=== PATIENT | female | born 2000 | race Hispanic/Latino ===

== ENCOUNTER 2023-02-20 05:00 | Inpatient (IN) | payer OTHER ==
[2023-02-20 06:35] VITALS: BMI 39.0
[2023-02-20] MEDS ORDERED: Methylergonovine 0.2 MG/ML VIAL IM PRN (06:36)
[2023-02-20] MEDS ORDERED: Ondansetron PF 4 MG/2 ML Vial IVP PRN ×2 (06:36→15:02)
[2023-02-20] MEDS ORDERED: Carboprost 250 MCG/ML AMP IM PRN (06:36)
[2023-02-20] MEDS ORDERED: Docusate 100 MG CAP PO PRN (06:36)
[2023-02-20] MEDS ORDERED: Promethazine HCl 25 MG/ML VIAL IM PRN ×2 (06:36→15:02)
[2023-02-20] MEDS ORDERED: Misoprostol 200 MCG TAB PR PRN (06:36)
[2023-02-20] MEDS ORDERED: hydrALAZINE 20 MG/ML VIAL SLOW IVP PRN (06:36)
[2023-02-20] MEDS ORDERED: fentaNYL 50 mcg/mL 1 mL Vial SLOW IVP PRN (06:36)
[2023-02-20] MEDS ORDERED: Ibuprofen 800 MG TAB PO PRN (06:36)
[2023-02-20] MEDS ORDERED: Lidocaine 1% (PF) 30 ML VIAL SC PRN (06:36)
[2023-02-20] MEDS ORDERED: Tranexamic Acid 1,000 MG/10 ML VIAL IVP PRN (06:36)
[2023-02-20] MEDS ORDERED: Lactated Ringer's 1,000 ML IV SCH (06:45)
[2023-02-20] MEDS ORDERED: Oxytocin 30 units/NS 500 ML 500 ML IV SCH ×3 (06:45)
[2023-02-20] MEDS ORDERED: Oxytocin 30 units/NS 500 ML 500 ML ONE (07:09)
[2023-02-20 07:10] LABS: Hemoglobin 14.5 g/dL (12.0-15.5); Mean Corpuscular HGB CONC 36.3 g/dL (32.0-36.0); Mean Corpuscular Volume 88.3 fl (81.6-98.3); Mean Platelet Volume 10.9 fl (7.4-10.4); Platelet Count 283 10x3/uL (150-450); RBC Distribution Width 13.2 % (11.5-14.5); Red Blood Cell (RBC) Count 4.53 10x6/uL (3.90-5.03); White Blood Cell (WBC) Count 9.9 10x3/uL (3.5-10.5)
[2023-02-20 07:42] LABS: Hep B Surf Ag - L&D Non-Reactive S/CO (NonReactive)
[2023-02-20 07:43] LABS: Syphilis Antibody Nonreactive (Nonreactive); Syphilis Antibody Index 0.03 S/CO (<1.00 Non-Reactive)
[2023-02-20] MEDS ORDERED: Bupivacaine PF 0.5% 30 ML VIAL ONE (08:00)
[2023-02-20] MEDS ORDERED: Bupivacaine 0.25% HCL 30 ML VIAL ONE (08:00)
[2023-02-20] MEDS ORDERED: fentaNYL/Ropivacaine Epidural 100 ML ONE (14:27)
[2023-02-20] MEDS ORDERED: Naloxone HCl 0.4 mg/ml Vial IVP PRN ×2 (15:02)
[2023-02-20] MEDS ORDERED: Lactated Ringer's 500 ML IV PRN (15:02)
[2023-02-20] MEDS ORDERED: ePHEDrine Sulfate 50 MG/10 ML VIAL SLOW IVP PRN (15:02)
[2023-02-20] MEDS ORDERED: Moisturizing Cream (Eucerin) 113 GM JAR TOP PRN (15:02)
[2023-02-20] MEDS ORDERED: Acetaminophen 325 MG TAB PO PRN (15:02)
[2023-02-20] MEDS ORDERED: diphenhydrAMINE 50 MG/ML VIAL IVP PRN (15:02)
[2023-02-20] MEDS ORDERED: fentaNYL 2 mcg/Ropivacaine 0.2% Epidural 100 ML CADD EPIDURAL SCH (15:15)
[2023-02-20] MEDS ORDERED: Communication Order-Pharmacy FS SCH (15:15)
[2023-02-21] MEDS ORDERED: diphenhydrAMINE 50 MG/ML VIAL IVP SCH (00:15)
[2023-02-21] MEDS ORDERED: CEFAZOLIN 2 GM VIAL ONE (00:55)
[2023-02-21] MEDS ORDERED: Azithromycin 500 MG VIAL ONE (00:55)
[2023-02-21] MEDS ORDERED: Ampicillin 125 MG/5 ML VIAL SLOW IVP SCH ×2 (03:00→06:00)
[2023-02-21] MEDS ORDERED: Ampicillin 2 GM VIAL ONE (03:04)
[2023-02-21] MEDS ORDERED: Ampicillin 2 GM in Sodium Chloride 0.9% 100 ML IVPB SCH ×3 (03:30→09:45)
[2023-02-21] MEDS ORDERED: Gentamicin 320 MG, Admixture Fee 1 EACH in Sodium Chloride 0.9% 100 ML IVPB SCH (04:00)
[2023-02-21] MEDS ORDERED: fentaNYL 50 mcg/mL 1 mL Vial ONE (04:18)
[2023-02-21] MEDS ORDERED: Piperacillin/Tazobactam 3.375 GM in Sodium Chloride 0.9% 100 ML IVPB SCH (06:00)
[2023-02-21] MEDS ORDERED: Ondansetron PF 4 MG/2 ML Vial IVP PRN (13:17)
[2023-02-21] MEDS ORDERED: Methylergonovine 0.2 MG/ML VIAL IM PRN (13:17)
[2023-02-21] MEDS ORDERED: Benzocaine-Menthol 82.5 ML CAN TOP PRN (13:17)
[2023-02-21] MEDS ORDERED: hydrALAZINE 20 MG/ML VIAL SLOW IVP PRN (13:17)
[2023-02-21] MEDS ORDERED: Oxytocin 30 units/NS 500 ML 500 ML IV SCH (13:17)
[2023-02-21] MEDS ORDERED: Bisacodyl 10 MG SUPP PR PRN (13:17)
[2023-02-21] MEDS ORDERED: Boostrix 0.5 ML (Tdap) VIAL (>/=7 yrs of age) IM ONE (13:17)
[2023-02-21] MEDS ORDERED: Misoprostol 200 MCG TAB VAG PRN (13:17)
[2023-02-21] MEDS ORDERED: diphenhydrAMINE 25 MG CAP PO PRN (13:17)
[2023-02-21] MEDS ORDERED: Milk Of Magnesia 30 ML UDCUP PO PRN (13:17)
[2023-02-21] MEDS ORDERED: Lanolin Ointment 7 GM TUBE TOP PRN (13:17)
[2023-02-21] MEDS ORDERED: Prenatal Vitamin 1 TAB PO SCH (13:30)
[2023-02-21] MEDS ORDERED: Docusate 100 MG CAP PO SCH (13:30)
[2023-02-21] MEDS ORDERED: Ferrous Sulfate 325 MG TAB PO SCH (13:30)
[2023-02-21 13:48] LABS: Hematocrit 31.8 % (34.9-44.5); Hemoglobin 11.1 g/dL (12.0-15.5); Mean Corpuscular HGB CONC 34.9 g/dL (32.0-36.0); Mean Corpuscular Hemoglobin 31.4 pg (27.0-33.0); Mean Corpuscular Volume 90.1 fl (81.6-98.3); Mean Platelet Volume 10.6 fl (7.4-10.4); Platelet Count 191 10x3/uL (150-450); RBC Distribution Width 13.4 % (11.5-14.5); Red Blood Cell (RBC) Count 3.53 10x6/uL (3.90-5.03); White Blood Cell (WBC) Count 16.2 10x3/uL (3.5-10.5)
[2023-02-21] MEDS: Ibuprofen 800 MG TAB PO SCH ×2 (14:52→22:09)
[2023-02-21] MEDS: Acetaminophen 500 MG TAB PO SCH ×2 (14:53→22:09)
[2023-02-21 16:24] LABS: D-Dimer Test 3.54 mg/L FEU (0.19-0.50); PTT 31.9 sec (22.0-33.0); Prothrombin Time 10.3 sec (9.5-12.1)
[2023-02-21] MEDS: Ferrous Sulfate 325 MG TAB PO SCH (19:26)
[2023-02-21] MEDS: Docusate 100 MG CAP PO SCH (22:08)
[2023-02-22] MEDS: Acetaminophen 500 MG TAB PO SCH ×3 (06:11→22:35)
[2023-02-22] MEDS: Ibuprofen 800 MG TAB PO SCH ×3 (06:11→22:34)
[2023-02-22] MEDS: Ferrous Sulfate 325 MG TAB PO SCH (08:05)
[2023-02-22] MEDS: Docusate 100 MG CAP PO SCH ×2 (08:06→22:34)
[2023-02-22] MEDS: Prenatal Vitamin 1 TAB PO SCH (08:06)
[2023-02-23] MEDS: Ferrous Sulfate 325 MG TAB PO SCH ×3 (06:26→18:20)
[2023-02-23] MEDS: Acetaminophen 500 MG TAB PO SCH ×2 (06:30→13:25)
[2023-02-23] MEDS: Ibuprofen 800 MG TAB PO SCH ×2 (06:31→13:26)
[2023-02-23] MEDS: Docusate 100 MG CAP PO SCH (08:32)
[2023-02-23] MEDS: Prenatal Vitamin 1 TAB PO SCH (08:32)
[2023-02-23 10:10] LABS: #Eosinphils 0.3 10x3/uL (0.0-0.5); #Monocytes 0.5 10x3/uL (0.0-1.1); #Neutrophils 4.7 10x3/uL (1.5-8.4); %Basophils 0.4 % (0.0-2.0); %Eosinophils 3.4 % (0.0-6.0); %Lymphocytes 33.4 % (18.0-47.0); %Monocytes 6.1 % (0.0-10.0); %Neutrophils 56.3 % (40.0-75.0); Hematocrit 28.9 % (34.9-44.5); Hemoglobin 10.1 g/dL (12.0-15.5); Mean Corpuscular HGB CONC 34.9 g/dL (32.0-36.0); Mean Corpuscular Hemoglobin 31.9 pg (27.0-33.0); Mean Corpuscular Volume 91.2 fl (81.6-98.3); Mean Platelet Volume 10.5 fl (7.4-10.4); Platelet Count 246 10x3/uL (150-450); RBC Distribution Width 13.2 % (11.5-14.5); Red Blood Cell (RBC) Count 3.17 10x6/uL (3.90-5.03); White Blood Cell (WBC) Count 8.3 10x3/uL (3.5-10.5)
[2023-02-23 10:33] LABS: ALT (SGPT) 7 U/L (8-55); AST (SGOT) 11 U/L (5-34); Albumin 2.7 g/dL (3.5-5.0); Alkaline Phosphatase 125 U/L (40-100); Anion Gap 13 mmol/L (10-20); BUN (Urea Nitrogen) 7 mg/dL (7.0-18.7); Bilirubin, Total 0.4 mg/dL (0.2-1.2); Calc. Creatinine Clearance 204 mL/min (70-130); Calcium 8.1 mg/dL (7.8-10.44); Carbon Dioxide 20 mmol/L (22-29); Chloride 109 mmol/L (98-107); Estimated GFR 130; Globulin 2.4 g/dL (2.4-3.5); Glucose 88 mg/dL (70-105); Potassium 3.1 mmol/L (3.5-5.1); Protein, Total 5.1 g/dL (6.0-8.3); Sodium 139 mmol/L (136-145)
[2023-02-23] MEDS ORDERED: Potassium Chloride 20 MEQ TAB PO SCH (11:00)
[2023-02-23 12:49] VITALS: BP 120/74; TEMP 98
[2023-02-23 13:12] LABS: Creatinine, Urine 151.22 mg/dL (47-110)
== END 2023-02-23 18:45 | disposition home or self-care (01) | DRG 805 ==
LOC: CSHLD 06:07 → CSHPED 02-21 08:12
PROVIDERS: ADMIT Obstetrics & Gynecology; ATTEND Obstetrics & Gynecology
PROC: 10907ZC Drainage of Amniotic Fluid, Therapeutic from Products of Conception, Via Natural or Artificial Opening (ICD-10-PCS; 2023-02-20)
PROC: 10H07YZ Insertion of Other Device into Products of Conception, Via Natural or Artificial Opening (ICD-10-PCS; 2023-02-20)
PROC: 10E0XZZ Delivery of Products of Conception, External Approach (ICD-10-PCS; principal; 2023-02-21)
PROC: 0HQ9XZZ Repair Perineum Skin, External Approach (ICD-10-PCS; 2023-02-21)
PROC: 0UQMXZZ Repair Vulva, External Approach (ICD-10-PCS; 2023-02-21)
DX: O99.214 Obesity complicating childbirth (principal); O41.1230 Chorioamnionitis, third trimester, not applicable or unspecified; Z37.0 Single live birth; Z3A.40 40 weeks gestation of pregnancy; E66.9 Obesity, unspecified; O99.334 Smoking (tobacco) complicating childbirth; O70.0 First degree perineal laceration during delivery; O71.82 Other specified trauma to perineum and vulva; O69.81X0 Labor and delivery complicated by cord around neck, without compression, not applicable or unspecified; O72.1 Other immediate postpartum hemorrhage
CPT/HCPCS: 36415; 51702; 80053; 82570; 84156; 85025; 85027; 85049; 85300; 85362; 85379; 85384; 85610; 85730; 86780; 86850; 86900; 86901; 87340; 99285; J0290; J1200; J2210; J3010; J3490; S0020